=== PATIENT | female | born 1970 | race Caucasian/White ===

== ENCOUNTER 2021-12-26 07:50 | Outpatient (RCR) | payer OTHER, SELFPAY ==
--- NOTE | 2021-12-26 09:09 | PTOPEVAL ---
Thank you for referring Sury Greene to [facility].? The patient is scheduled to be seen for therapy? ____x/week for ___ weeks. Please review, sign, date and return this plan of care KATIE. I agree with and certify that the following plan of care is medically necessary. 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 she reports she was having pain with as little pressure as putting the foot on the floor. she reports she had surgery on . she reports she is limited to flat ground walking and no steps. she reports has no pain today. 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 Prior Level of Function Comments Additional Prior Level of Function prior to 8-9 months ago when Comments the bulge began to appear she had no issues with the R foot/ ankle. Pain Assessment Timing of Pain Assessment Timing of Pain Assessment Assessment Pain Scale Pain Scale Used Numeric (1 - 10) Self Report Pain Assessment Right Heel(s) Reported Pain Level 0 Greatest Pain Intensity 0 Pain Score Pain Score 0: Self Report Interventions Used Interventions Used By Clinicians Ice,Rest Lower Extremity Range of Motion Ankle/Foot Range of Motion Right Ankle Dorsiflexion With Knee Extension 15 Range of Motion - Active Ankle Plantarflexion Range of Motion - 40 Active Query Text: Ankle Eversion Range of Motion - Active 10 Ankle Inversion Range of Motion - Active 38 Left Ankle Dorsiflexion With Knee Extension 20 Range of Motion - Active Ankle Plantarflexion Range of Motion - 50 Active Query Text: Ankle Eversion Range of M
--- NOTE | 2022-01-24 18:00 | PTOPEVAL ---
Thank you for referring Sury Greene to [facility].? The patient is scheduled to be seen for therapy? ____x/week for ___ weeks. Please review, sign, date and return this plan of care KATIE. I agree with and certify that the following plan of care is medically necessary. 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 She Family states that she is happy with her decreases in pain and her ability to sleep without pain now. She also states that she is able to stand on her toes without any pain any longer. She says that she only has a bit of pain when walking for extended periods of time and no longer uses pain medications to manage this. Pain Assessment Timing of Pain Assessment Timing of Pain Assessment Pre-Treatment Self Report Self Report Pain Level 0 Pain Score Pain Score 0: Self Report Additional Pain Score Comments only has pain when attempting to perform a heel raise on the R LE Lower Extremity Range of Motion General Lower Extremity Range of Motion Gross Lower Extremity Range of Motion R Ankle DF = 12 degrees Comments L Ankle DF = 15 degrees Ankle/Foot Range of Motion Right Ankle Plantarflexion Range of Motion - 45 Active Query Text: Ankle Eversion Range of Motion - Active 20 Ankle Inversion Range of Motion - Active 45 Lower Extremity Muscle Strength Testing Ankle Strength Right Ankle Dorsiflexion Strength 5 Normal Ankle Plantarflexion Strength 5 Normal Ankle Eversion Strength 5 Normal Ankle Inversion Strength 5 Normal Left Ankle Dorsiflexion Strength 5 Normal Ankle Plantarflexion Strength 5 Normal Ankle Eversion Strength 5 Normal Ankle Inversion Strength 5 Normal Gait Assessment Gait Assessment Additional Ambulation Comments Pt ambulates
== END 2022-03-26 23:59 | disposition home or self-care (01) ==
LOC: CHSPT 07:50
PROVIDERS: Visit Provider Nurse Practitioner Family
DX: Z48.89 Encounter for other specified surgical aftercare (principal); M92.61 Juvenile osteochondrosis of tarsus, right ankle
CPT/HCPCS: 97014; 97110; 97140; 97161; 97530; G0283

== ENCOUNTER 2023-10-24 08:29 | Outpatient (RCR) | payer OTHER, SELFPAY ==
--- NOTE | 2023-10-24 08:33 | OPREHPOC ---
Outpatient Therapy Plan of Care This is a Multidisciplinary Plan of Care that may contain components documented by all disciplines (PT, OT, and ST.) PT Problem 1 PT Problem #1 Knowledge Deficit PT Goal 1 Goal 1. independent and compliant with HEP Target Visit 5 PT Problem 2 PT Problem #2 Pain PT Goal 1 Goal 1. decrease pain at worst to 6/10 or less in the lower back Target Visit 10 PT Problem 3 PT Problem #3 Impaired Strength PT Goal 1 Goal 1. improve core strength to 3+/5 or better 2. improve bilateral hip strength to 4/5 or better overall Target Visit 10 PT Problem 4 PT Problem #4 Impaired Range of Motion PT Goal 1 Goal 1. improve bilateral lumbar side bending to 25 degrees or better 2. improve lumbar extension to 15 degrees 3. improve bilateral piriformis mm tightness to mild or less 4. 10 degrees or less tightness of the bilateral hamstrings Target Visit 10 PT Problem 5 PT Problem #5 Impaired Functional Mobil PT Goal 1 Goal 1. oswestry to display 30% or less functional deficits 2. patient to display safe squat and lift mechanics of 20lbs from floor without increased pain x10 reps 3. patient to carry 20lbs around 200ft with no more than 5/10 pain
--- NOTE | 2023-10-24 08:33 | PTOPEVAL1 ---
Assessment and note entered by JT File, PT Evaluation Information Diagnosis lower back pain, mid back pain Onset 10/01/23 Subjective Information patient reports she is coming to skilled PT due to pain in the lower back. she reports it comes at goes at times, but hurts when going to bed, getting to bed, and when working. she reports she has ly xrays that show arthritis. she reports she has increased pain with bending forward and laying flat. she reports she is better with walking and sitting. she reports in general when she is active she is better, but then feels the pain when she tries to rest. 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 she reports she does not get pain or symptoms down the legs. Reported Pain Level Pain Score 6: Self Report Assessment PT Clinical Summary mrs. antunez is a 53 yo woman who presents to skilled PT services for evaluation and treatment of lower back pain. she has a job that requires her to bend and lift a lot which increases her pain. she presents today with deficits in lumbar extension/ side bending, proximal LE strength, core strength, and LE mm tightness. she displays signs and symptoms consistent with lumbar DDD. Continued skilled PT is indicated to improve patients objective/functional deficits to return to her prior level functional activity performance/ quality of life. Plan of Care Interventions Electrical Stimulation,Hot Pack/Cold Pack,Manual Therapy,Mechanical Traction,Neuro Re-education, Patient/Caregiver Educati,Therapeutic Activities, Therapeutic Exercise PT Services Indicated Yes Treatment Frequency and 2x weekly for 10 visits Duration These treatments will address the objective and functional deficits as defined above. The patient will be advanced safely and appropriately in order for the patient to progress towards his/her prior level of function. Additional exercises will be introduced and as well as a comprehensive home exercise program upon discharge, if needed, ?to ensure carryover of functional gains achieved in the clinic. This treatment plan has been reviewed and agreement upon by the patient.
--- NOTE | 2023-11-27 11:30 | OPREHPOC ---
Outpatient Therapy Plan of Care This is a Multidisciplinary Plan of Care that may contain components documented by all disciplines (PT, OT, and ST.) PT Problem 1 PT Problem #1 Knowledge Deficit PT Goal 1 Goal 1. independent and compliant with HEP Target Visit 5 Progress Met PT Problem 2 PT Problem #2 Pain PT Goal 1 Goal 1. decrease pain at worst to 6/10 or less in the lower back Target Visit 10 Progress Met PT Problem 3 PT Problem #3 Impaired Strength PT Goal 1 Goal 1. improve core strength to 3+/5 or better 2. improve bilateral hip strength to 4/5 or better overall Target Visit 10 Progress Not Met PT Problem 4 PT Problem #4 Impaired Range of Motion PT Goal 1 Goal 1. improve bilateral lumbar side bending to 25 degrees or better 2. improve lumbar extension to 15 degrees 3. improve bilateral piriformis mm tightness to mild or less 4. 10 degrees or less tightness of the bilateral hamstrings Target Visit 10 Progress Partially Met PT Problem 5 PT Problem #5 Impaired Functional Mobil PT Goal 1 Goal 1. oswestry to display 30% or less functional deficits 2. patient to display safe squat and lift mechanics of 20lbs from floor without increased pain x10 reps 3. patient to carry 20lbs around 200ft with no more than 5/10 pain Progress Met
--- NOTE | 2023-11-27 11:30 | PTOPDC ---
Assessment and note entered by Elena Mckeon DPT Evaluation Information Assessment Status Discharge Diagnosis lower back pain, mid back pain Onset 10/01/23 Subjective Information patient reports she has improved since start of PT . she reports she has been able to return to all daily activities at PLOF. she does reports if she does a lot of bending she has some pain but is bale to manage with medication. she reports she is compliant with HEP Reported Pain Level Pain Score 5: Self Report Assessment PT Clinical Summary Ms. Greene attended 10 visits of skilled PT with good progression towards goals. She met goals for HEP, pain, and functional lifting and carrying. She did not meet goals for strength or flexibility but made good progress. She has been able to return to all daily activities at PLOF. She is compliant with HEP and is appropriate for DC at this time. Plan of Care PT Services Indicated No
== END 2023-11-27 15:23 | disposition home or self-care (01) ==
LOC: CHSPT 08:29
PROVIDERS: PCP Family Medicine
DX: M54.50 Low back pain, unspecified (principal); M54.9 Dorsalgia, unspecified
CPT/HCPCS: 97014; 97110; 97161; 97530; G0283

== ENCOUNTER 2024-05-12 12:47 | Outpatient (RCR) | payer OTHER, SELFPAY ==
--- NOTE | 2024-05-12 15:26 | OTOPEVAL1 ---
Assessment and note entered by Iesha Ireland OT Evaluation Information Assessment Status Evaluation Diagnosis L hand pain ICD-10 Condition Codes (OT) M79.642 Onset April 10, 2024 Reported Pain Level Pain Score 4: Self Report Assessment OT Clinical Summary The patient is a 54 year old female who was referred to outpatient OT due to surgery on L hand and increased pain. The patient previously demonstrated WNL digit ROM, wrist ROM, no pain, WNL strength and dexterity. The patient now demonstrates significant edema, 5/10 pain and severely limited ROM of digits 2-5 of L hand and limitations in wrist mobility. At the time of evaluation, the patient scored 90.9% on QuickDASH questionnaire which demonstrate severely impaired use of L UE resulting in inability to perform ADLs and work tasks. The patient requires skilled OT to address deficits and return to independence. Plan of Care Interventions Therapeutic Exercise,Manual Therapy,Neuro Re- education,Therapeutic Activities,Hot Pack/Cold Pack,Sensory Integrative Techn,Self-Care/Home Management,Ultrasound OT Services Indicated Yes Treatment Frequency and 2x/week for 10 visits. Duration These treatments will address the objective and functional deficits as defined above. The patient will be advanced safely and appropriately in order for the patient to progress towards his/her prior level of function. Additional exercises will be introduced and as well as a comprehensive home exercise program upon discharge, if needed, ?to ensure carryover of functional gains achieved in the clinic. This treatment plan has been reviewed and agreement upon by the patient.
--- NOTE | 2024-05-12 15:26 | OPREHPOC ---
Outpatient Therapy Plan of Care This is a Multidisciplinary Plan of Care that may contain components documented by all disciplines (PT, OT, and ST.) OT Problem 1 OT Problem #1 Knowledge Deficit OT Goal 1 Goal / Goal Update The patient will demonstrate 100% knowledge and return demonstration of UE HEP in order to regain ROM of hand and wrist for independence in ADLs. Target Visit 10 OT Problem 2 OT Problem #2 Impaired Range of Motion OT Goal 1 Goal / Goal Update The patient will demonstrate increased AROM of L hand by increasing digit ROM by >5 degrees for MP flexion and increase wrist mobility performing wrist flexion at >40 degrees and wrist flexion at > 40 degrees in order to make meals for family. Target Visit 10 OT Problem 3 OT Problem #3 Edema OT Goal 1 Goal / Goal Update The patient will demonstrate decreased edema of L hand by measuring distal palmar crease at 21.5 cm and middle finger proximal phalanx at 7cm in order to increase ROM of digits and use hand for grooming tasks. Target Visit 10 OT Problem 4 OT Problem #4 Impaired Coordination OT Goal 1 Goal / Goal Update The patient will demonstrate increased dexterity of digits of L hand by performing full digit opposition in order to perform tasks for working. Target Visit 10
--- NOTE | 2024-06-11 11:03 | OTOPPROG ---
Assessment and note entered by Iesha Ireland OT Evaluation Information Assessment Status Progress Assessment OT Clinical Summary The patient demonstrates significant progress in HEP education and demonstration, edema, digit and wrist ROM, fine motor coordination/dexterity, and insole channeler/pinch strength at the time of progress note. The patient demonstrates good tolerance for therapy and good carryover of HEP. Due to the patient's increase in digit ROM and ability to close hand with increased success, therapist added goals for 9-hole peg test and insole channeler/pinch in order to progress patient in POC and increase function of hand for independence with ADLs and IADLs. The patient continues to require skilled OT due to moderate impairment of L hand and requires continued stretching and strengthening of UE to return to PLOF. Plan of Care Interventions Therapeutic Exercise,Manual Therapy,Neuro Re- education,Therapeutic Activities,Hot Pack/Cold Pack,Electrical Stimulation,Sensory Integrative Techn,Self-Care/Home Management,Prosthetic Training,Ultrasound OT Services Indicated Yes Treatment Frequency and 2x/week for 10 visits. Duration These treatments will address the objective and functional deficits as defined above. The patient will be advanced safely and appropriately in order for the patient to progress towards his/her prior level of function. Additional exercises will be introduced and as well as a comprehensive home exercise program upon discharge, if needed, ?to ensure carryover of functional gains achieved in the clinic. This treatment plan has been reviewed and agreement upon by the patient.
--- NOTE | 2024-06-11 11:03 | OPREHPOC ---
Outpatient Therapy Plan of Care This is a Multidisciplinary Plan of Care that may contain components documented by all disciplines (PT, OT, and ST.) OT Problem 1 OT Problem #1 Knowledge Deficit OT Goal 1 Goal / Goal Update The patient will demonstrate 100% knowledge and return demonstration of UE HEP in order to regain ROM of hand and wrist for independence in ADLs. GOAL MET Target Visit 10 Progress Met OT Goal 2 Goal / Goal Update 2x per day OT Problem 2 OT Problem #2 Impaired Range of Motion OT Goal 1 Goal / Goal Update The patient will demonstrate increased AROM of L hand by increasing digit ROM by >5 degrees for MP flexion and increase wrist mobility performing wrist flexion at >40 degrees and wrist flexion at > 40 degrees in order to make meals for family. GOAL PROGRESSING; CONTINUE Target Visit 20 Progress Partially Met OT Goal 2 Goal / Goal Update MP flexion: 2 - 55 degrees 3 - 46 degrees 4 - 38 degrees 5 - 30 degrees Wrist: 42 degrees extension 40 degrees flexion OT Problem 3 OT Problem #3 Edema OT Goal 1 Goal / Goal Update The patient will demonstrate decreased edema of L hand by measuring distal palmar crease at 21.5 cm and middle finger proximal phalanx at 7cm in order to increase ROM of digits and use hand for grooming tasks. GOAL PROGRESSING; CONTINUE Target Visit 20 Progress Partially Met OT Goal 2 Goal / Goal Update DPC: 22 cm Middle digit proximal phalanx: 7.5 cm OT Problem 4 OT Problem #4 Impaired Coordination OT Goal 1 Goal / Goal Update The patient will demonstrate increased dexterity of digits of L hand by performing 9-hole peg test in <30 seconds in order to perform work tasks. GOAL PROGRESSING; UPGRADED Target Visit 20 Progress Partially Met OT Goal 2 Goal / Goal Update Full opposition pad to pad and tip to tip for each digit At PN 9-hole peg completed 49 seconds - Norm is 19 seconds OT Goal 1 Goal / Goal Update The patient will demonstrate increased specialist employee labor relations and pinch strength of L hand by demonstrating >25 lbs specialist employee labor relations strength and >4 lbs of lateral pinch strength in order to decrease risk of dropping items during cooking tasks. NEW GOAL ADDED 06/11/24 Target Visit 20 OT Goal 2 Goal / Goal Update 1.5 lb lateral pinch strength 10 lb specialist employee labor relations strength L hand 63 lb specialist employee labor relations strength R hand
--- NOTE | 2024-07-21 12:43 | BUOTOPEVAL ---
Assessment and note entered by Iesha Ireladn OT Evaluation Information Assessment Status Progress Diagnosis L hand pain ICD-10 Condition Codes (OT) M79.642 Onset April 10, 2024 Reported Pain Level Pain Score 0: Self Report Pain Score 0: Self Report Pain Score 0: Self Report Pain Score 0: Self Report Pain Score 0: Self Report Pain Score 1: Self Report Pain Score 0: Self Report Pain Score 3: Self Report Pain Score 0: Self Report Pain Score 0: Self Report Pain Score 0: Self Report Pain Score 0: Self Report Pain Score 0: Self Report Pain Score Mild Pain: Ignacio Delacruz Pain Score 0: Self Report Pain Score 0: Self Report Pain Score 0: Self Report Pain Score 4: Self Report Pain Score 4: Self Report Pain Score 4: Self Report Assessment OT Clinical Summary The patient demonstrates significant progress in digit ROM, wrist ROM, fine motor coordination and pinch/party plan dealer strength which have increased independence with grasping items for ADLs and holding onto steering wheel. The patient demonstrates continued deficits in digit AROM, pinch/party plan dealer strength and fine motor coordination with the patient not achieving full composite fist and difficulty with maintaining grasp of items due to weakness. Therapist educated patient to continue with current POC and continue with therapist to address ROM issues and encouraged patient to perform HEP at home of stretching due to continued weak grasp. The patient verbalized understanding but wants a break from coming to therapy and reports she will do her stretches at home. The patient was educated that therapist will follow up within a few weeks to determine progress and to contact her MD if there are any problems or if she does not get increased digit ROM. The patient was provided with HEP for PROM and party plan dealer/pinch exercises, therapist has educated patient to continue with therapy with patient choosing to do HEP at home at this time, to re- assess later to improve mobility and strength. Plan of Care Interventions Therapeutic Exercise,Manual Therapy,Neuro Re- education,Therapeutic Activities,Hot Pack/Cold Pack,Electrical Stimulation,Self-Care/Home Management,Prosthetic Training,Ultrasound OT Services Indicated Yes Treatment Frequency and 1-2 times per week for 10 visits. Duration These treatments will address the objective and functional deficits as defined above. The patient will be advanced safely and appropriately in order for the patient to progress towards his/her prior level of function. Additional exercises will be introduced and as well as a comprehensive home exercise program upon discharge, if needed, ?to ensure carryover of functional gains achieved in the clinic. This treatment plan has been reviewed and agreement upon by the patient.
== END 2024-08-10 23:59 | disposition home or self-care (01) ==
LOC: CHSOT 12:47
DX: M79.642 Pain in left hand (principal)
CPT/HCPCS: 97110; 97140; 97166; 97530